=== PATIENT | male | born 1950 | race Caucasian/White ===

== ENCOUNTER 2022-06-09 10:50 | Emergency (ER) | payer MEDICARE ==
[2022-06-09 11:52] LABS: #Eosinphils 0.1 10x3/uL (0.0-0.5); #Monocytes 0.8 10x3/uL (0.0-1.1); #Neutrophils 5.6 10x3/uL (1.5-8.4); %Basophils 0.3 % (0.0-2.0); %Eosinophils 0.9 % (0.0-6.0); %Lymphocytes 29.2 % (18.0-47.0); %Monocytes 8.7 % (0.0-10.0); %Neutrophils 60.5 % (40.0-75.0); Mean Corpuscular HGB CONC 36.1 g/dL (32.0-36.0); Mean Corpuscular Hemoglobin 30.1 pg (27.0-33.0); Mean Corpuscular Volume 83.4 fl (81.2-95.1); Mean Platelet Volume 9.7 fl (7.4-10.4); Platelet Count 119 10x3/uL (150-450); RBC Distribution Width 12.9 % (11.5-14.5); Red Blood Cell (RBC) Count 5.31 10x6/uL (4.32-5.72); White Blood Cell (WBC) Count 9.2 10x3/uL (3.5-10.5)
[2022-06-09 12:08] LABS: ALT (SGPT) 41 U/L (8-55); AST (SGOT) 40 U/L (5-34); Albumin 4.5 g/dL (3.4-4.8); Alkaline Phosphatase 49 U/L (40-110); Anion Gap 13 mmol/L (10-20); BUN (Urea Nitrogen) 18 mg/dL (8.4-25.7); Calc. Creatinine Clearance 0 mL/min (70-130); Calcium 10.1 mg/dL (7.8-10.44); Carbon Dioxide 25 mmol/L (23-31); Chloride 106 mmol/L (98-107); Estimated GFR 94; Globulin 3.8 g/dL (2.4-3.5); Glucose 157 mg/dL (80-115); Protein, Total 8.3 g/dL (5.8-8.1); Sodium 140 mmol/L (136-145)
[2022-06-09 13:07] LABS: Bilirubin Neg (Negative); Blood, Urine 10 (Negative); Clarity Clear (Clear); Glucose, Urine (Dipstick) Normal (Negative); Ketone, Urine Negative (Negative); Leukocyte Negative (Negative); Nitrite Negative (Negative); Protein, Urine (Dipstick) 100 mg/dl (Neg-Trace); Urobilinogen Normal mg/dL (Less than 2)
[2022-06-09 13:39] LABS: Bacteria/HPF Rare-Few HPF (None Seen); RBC/HPF 0-3 HPF (0-3); Squamous Epithelial 0-3 HPF (0-3); WBC/HPF 0-3 HPF (0-3)
== END 2022-06-09 17:18 | disposition home or self-care (01) ==
LOC: CSHERS 10:50
DX: M62.81 Muscle weakness (generalized) (principal); E11.9 Type 2 diabetes mellitus without complications; I10 Essential (primary) hypertension; R11.2 Nausea with vomiting, unspecified; R26.9 Unspecified abnormalities of gait and mobility
CPT/HCPCS: 36416; 70450; 71045; 80053; 81003; 81015; 84484; 85025; 93005; 94760

== ENCOUNTER 2022-06-11 19:12 | Inpatient (IN) | payer MEDICARE ==
[2022-06-11 20:53] LABS: #Eosinphils 0.1 10x3/uL (0.0-0.5); #Monocytes 0.7 10x3/uL (0.0-1.1); #Neutrophils 4.7 10x3/uL (1.5-8.4); %Basophils 0.5 % (0.0-2.0); %Eosinophils 1.6 % (0.0-6.0); %Lymphocytes 29.3 % (18.0-47.0); %Monocytes 8.8 % (0.0-10.0); %Neutrophils 59.3 % (40.0-75.0); Hemoglobin 15.3 g/dL (13.5-17.5); Mean Corpuscular HGB CONC 36.7 g/dL (32.0-36.0); Mean Corpuscular Hemoglobin 30.4 pg (27.0-33.0); Mean Corpuscular Volume 82.7 fl (81.2-95.1); Mean Platelet Volume 9.3 fl (7.4-10.4); Platelet Count 122 10x3/uL (150-450); RBC Distribution Width 12.7 % (11.5-14.5); Red Blood Cell (RBC) Count 5.04 10x6/uL (4.32-5.72)
[2022-06-11 21:04] LABS: ALT (SGPT) 42 U/L (8-55); AST (SGOT) 40 U/L (5-34); Albumin 4.2 g/dL (3.4-4.8); Alkaline Phosphatase 50 U/L (40-110); Anion Gap 16 mmol/L (10-20); BUN (Urea Nitrogen) 17 mg/dL (8.4-25.7); Calc. Creatinine Clearance 0 mL/min (70-130); Carbon Dioxide 20 mmol/L (23-31); Chloride 106 mmol/L (98-107); Estimated GFR 95; Globulin 3.8 g/dL (2.4-3.5); Glucose 125 mg/dL (80-115); Potassium 3.8 mmol/L (3.5-5.1); Sodium 138 mmol/L (136-145)
[2022-06-11 23:08] LABS: Bilirubin Neg (Negative); Blood, Urine 25 (Negative); Clarity Clear (Clear); Glucose, Urine (Dipstick) Normal (Negative); Ketone, Urine 15 mg/dL (Negative); Leukocyte Negative (Negative); Nitrite Negative (Negative); Protein, Urine (Dipstick) 100 mg/dl (Neg-Trace); Urobilinogen Normal mg/dL (Less than 2)
[2022-06-11 23:16] LABS: Bacteria/HPF Rare-Few HPF (None Seen); RBC/HPF 0-3 HPF (0-3); Squamous Epithelial 0-3 HPF (0-3); WBC/HPF 0-3 HPF (0-3)
[2022-06-12] MEDS ORDERED: Calcium Carbonate 500 MG ChewTAB PO PRN (00:31)
[2022-06-12] MEDS ORDERED: Dextrose 50% Abboject 50 ML SYRINGE SLOW IVP PRN (00:31)
[2022-06-12] MEDS ORDERED: Senokot S 8.6-50 MG TAB PO PRN (00:31)
[2022-06-12] MEDS ORDERED: Ondansetron PF 4 MG/2 ML Vial IVP PRN (00:31)
[2022-06-12] MEDS ORDERED: Guaifenesin DM 100-10/5 ML UDCUP PO PRN (00:31)
[2022-06-12] MEDS ORDERED: Dextrose 5% in Water 1,000 ML IV PRN (00:31)
[2022-06-12 00:39] LABS: SARS-CoV-2 NAA Rapid Test Not Detected (NotDetected)
[2022-06-12] MEDS ORDERED: Haloperidol Lactate 5 MG/ML VIAL ONE (01:12)
[2022-06-12] MEDS ORDERED: Lactated Ringer's 500 ML IV SCH (01:15)
[2022-06-12 05:38] LABS: Anion Gap 15 mmol/L (10-20); BUN (Urea Nitrogen) 17 mg/dL (8.4-25.7); Calc. Creatinine Clearance 139 mL/min (70-130); Calcium 9.5 mg/dL (7.8-10.44); Carbon Dioxide 20 mmol/L (23-31); Chloride 109 mmol/L (98-107); Estimated GFR 96; Glucose 132 mg/dL (80-115); Potassium 3.9 mmol/L (3.5-5.1); Sodium 140 mmol/L (136-145)
[2022-06-12] MEDS ORDERED: Boostrix 0.5 ML (Tdap) VIAL (>/=7 yrs of age) ONE (05:38)
[2022-06-12 05:39] LABS: Magnesium 1.9 mg/dL (1.6-2.6)
[2022-06-12 05:50] LABS: Thyroid Stimulating Hormone 2.358 uIU/mL (0.35-4.94)
[2022-06-12] MEDS ORDERED: Lisinopril 10 MG TAB ONE (08:02)
[2022-06-12] MEDS ORDERED: Aspirin Chewable 81 MG TAB ONE (08:02)
[2022-06-12] MEDS ORDERED: Enoxaparin Sodium 40 MG/0.4 ML SYRINGE ONE (08:02)
[2022-06-12] MEDS ORDERED: Amlodipine 5 MG TAB ONE (08:03)
[2022-06-12] MEDS: Enoxaparin Sodium 40 MG/0.4 ML SYRINGE SC SCH (08:42)
[2022-06-12] MEDS: Aspirin 81 mg Enteric Coated Tablet PO SCH (08:42)
[2022-06-12] MEDS ORDERED: Lisinopril 20 MG TAB PO SCH (09:00)
[2022-06-12] MEDS ORDERED: Amlodipine 10 MG TAB PO SCH (09:00)
[2022-06-12 12:42] LABS: Hemoglobin A1c 7.6 % (4.0-6.0)
[2022-06-12] MEDS: Acetaminophen 325 MG TAB PO PRN (20:18)
[2022-06-12] MEDS: HumaLOG 300 UNITS/3 ML VIAL SC PRN (20:26)
[2022-06-12] MEDS ORDERED: Donepezil HCl 5 MG TAB PO SCH (21:00)
[2022-06-12] MEDS ORDERED: Rosuvastatin 10 MG TAB PO SCH (21:00)
[2022-06-12] MEDS ORDERED: Furosemide 20 MG/2 ML VIAL SLOW IVP SCH (21:45)
[2022-06-12] MEDS ORDERED: Furosemide 40 MG/4 ML VIAL SLOW IVP SCH (22:00)
[2022-06-12] MEDS: Ampicillin/Sulbactam 3 GM in Sodium Chloride 0.9% 100 ML IVPB SCH (22:29)
[2022-06-12 23:41] LABS: Bilirubin Neg (Negative); Blood, Urine 25 (Negative); Clarity Clear (Clear); Glucose, Urine (Dipstick) Normal (Negative); Ketone, Urine 50 mg/dL (Negative); Leukocyte Negative (Negative); Nitrite Negative (Negative); Protein, Urine (Dipstick) 100 mg/dl (Neg-Trace); Urobilinogen Normal mg/dL (Less than 2)
[2022-06-12 23:42] LABS: Urine Culture Reflex No No
[2022-06-12 23:48] LABS: Bacteria/HPF Rare-Few HPF (None Seen); RBC/HPF 0-3 HPF (0-3); Squamous Epithelial 0-3 HPF (0-3); WBC/HPF 0-3 HPF (0-3)
[2022-06-12 23:54] LABS: Legionella Urinary Ag Negative (Negative); Strep pneumo Urine Ag NEGATIVE (NEGATIVE)
[2022-06-13] MEDS: Acetaminophen 325 MG TAB PO PRN (02:31)
[2022-06-13] MEDS: Ampicillin/Sulbactam 3 GM in Sodium Chloride 0.9% 100 ML IVPB SCH ×3 (04:07→16:57)
[2022-06-13] MEDS ORDERED: Sterile Water 10 ML ONE (05:28)
[2022-06-13] MEDS ORDERED: Ziprasidone 20 MG VIAL IM SCH ×2 (05:30→15:15)
[2022-06-13] MEDS: HumaLOG 300 UNITS/3 ML VIAL SC PRN (06:13)
[2022-06-13 08:45] LABS: Anion Gap 15 mmol/L (10-20); BUN (Urea Nitrogen) 19 mg/dL (8.4-25.7); Calc. Creatinine Clearance 122 mL/min (70-130); Calcium 9.6 mg/dL (7.8-10.44); Carbon Dioxide 22 mmol/L (23-31); Chloride 107 mmol/L (98-107); Estimated GFR 91; Glucose 187 mg/dL (80-115); Potassium 3.6 mmol/L (3.5-5.1); Sodium 140 mmol/L (136-145)
[2022-06-13 08:46] LABS: Mean Corpuscular HGB CONC 35.6 g/dL (32.0-36.0); Mean Corpuscular Hemoglobin 30.4 pg (27.0-33.0); Mean Corpuscular Volume 85.4 fl (81.2-95.1); Mean Platelet Volume 9.5 fl (7.4-10.4); Platelet Count 88 10x3/uL (150-450); RBC Distribution Width 12.8 % (11.5-14.5); Red Blood Cell (RBC) Count 4.93 10x6/uL (4.32-5.72); White Blood Cell (WBC) Count 11.5 10x3/uL (3.5-10.5)
[2022-06-13 08:47] LABS: MDiff Complete? YES
[2022-06-13 09:16] LABS: Band 13 % (5-11); Lymphocytes 6 % (21-51); Monocytes 8 % (0-10); Neutrophil 73 % (42-75); Platelet Morphology Comment Appears Adequate
[2022-06-13 09:17] LABS: RBC Morphology Normal
[2022-06-13] MEDS: Enoxaparin Sodium 40 MG/0.4 ML SYRINGE SC SCH (11:43)
[2022-06-13] MEDS ORDERED: Aspirin 300 MG Suppository PR SCH (12:30)
[2022-06-13] MEDS ORDERED: Acetaminophen 650 MG Suppository PR SCH (13:45)
[2022-06-13] MEDS ORDERED: Acetaminophen 325 MG Suppository PR PRN (14:01)
[2022-06-13] MEDS ORDERED: Iopamidol 370 76% 100 ML VIAL ONE (14:37)
[2022-06-13] MEDS ORDERED: Lorazepam 2 MG/ML VIAL SLOW IVP PRN (14:52)
[2022-06-13] MEDS ORDERED: Ampicillin/Sulbactam 3 GM VIAL ONE (15:57)
[2022-06-13] MEDS ORDERED: Piperacillin/Tazobactam 3.375 GM in Sodium Chloride 0.9% 100 ML IVPB SCH (17:00)
[2022-06-13] MEDS: Aspirin 81 mg Enteric Coated Tablet PO SCH (21:03)
[2022-06-13] MEDS: Piperacillin/Tazobactam 3.375 GM in Sodium Chloride 0.9% 100 ML IVPB SCH (21:50)
[2022-06-13] MEDS: Rosuvastatin 20 MG TAB PO SCH (21:54)
[2022-06-14] MEDS: Piperacillin/Tazobactam 3.375 GM in Sodium Chloride 0.9% 100 ML IVPB SCH ×3 (04:41→20:43)
[2022-06-14 05:01] LABS: Hemoglobin 14.7 g/dL (13.5-17.5); Mean Corpuscular Hemoglobin 30.2 pg (27.0-33.0); Mean Corpuscular Volume 86.4 fl (81.2-95.1); Mean Platelet Volume 9.7 fl (7.4-10.4); Platelet Count 87 10x3/uL (150-450); Red Blood Cell (RBC) Count 4.86 10x6/uL (4.32-5.72); White Blood Cell (WBC) Count 9.2 10x3/uL (3.5-10.5)
[2022-06-14 05:12] LABS: Anion Gap 14 mmol/L (10-20); BUN (Urea Nitrogen) 24 mg/dL (8.4-25.7); Calc. Creatinine Clearance 122 mL/min (70-130); Calcium 9.9 mg/dL (7.8-10.44); Carbon Dioxide 24 mmol/L (23-31); Cardiac Risk 2.5 (Less than 4.5); Chloride 110 mmol/L (98-107); Cholesterol 106 mg/dl (< 200 Desired); Estimated GFR 91; Glucose 164 mg/dL (80-115); HDL Cholesterol 43 mg/dL (>60 Neg Risk); LDL Cholesterol, Calculated 44 mg/dL; Potassium 3.9 mmol/L (3.5-5.1); Sodium 144 mmol/L (136-145); Triglycerides 96 mg/dL (Less than 150)
[2022-06-14] MEDS: Enoxaparin Sodium 40 MG/0.4 ML SYRINGE SC SCH (10:14)
[2022-06-14] MEDS: Amlodipine 10 MG TAB PO SCH (10:40)
[2022-06-14] MEDS: Lisinopril 20 MG TAB PO SCH (10:41)
[2022-06-14] MEDS: Donepezil HCl 5 MG TAB PO SCH (10:41)
[2022-06-14] MEDS: Aspirin 300 MG Suppository PR SCH (10:41)
[2022-06-14] MEDS: Enalaprilat Dihydrate 1.25 MG/ML VIAL SLOW IVP SCH ×2 (12:50→18:50)
[2022-06-14] MEDS: Rosuvastatin 20 MG TAB PO SCH (20:43)
[2022-06-15] MEDS: Enalaprilat Dihydrate 1.25 MG/ML VIAL SLOW IVP SCH ×5 (01:14→23:53)
[2022-06-15] MEDS: Piperacillin/Tazobactam 3.375 GM in Sodium Chloride 0.9% 100 ML IVPB SCH ×3 (04:32→20:15)
[2022-06-15] MEDS: Enoxaparin Sodium 40 MG/0.4 ML SYRINGE SC SCH (08:50)
[2022-06-15] MEDS: Amlodipine 10 MG TAB PO SCH (10:38)
[2022-06-15] MEDS: Aspirin 300 MG Suppository PR SCH (10:38)
[2022-06-15] MEDS: Donepezil HCl 5 MG TAB PO SCH (10:39)
[2022-06-15] MEDS ORDERED: Enalaprilat Dihydrate 2.5 MG in Dextrose 5% in Water 50 ML IVPB SCH (12:00)
[2022-06-15] MEDS: Rosuvastatin 20 MG TAB PO SCH (20:59)
[2022-06-16] MEDS: Piperacillin/Tazobactam 3.375 GM in Sodium Chloride 0.9% 100 ML IVPB SCH ×3 (05:37→20:15)
[2022-06-16] MEDS: Enalaprilat Dihydrate 1.25 MG/ML VIAL SLOW IVP SCH ×3 (06:21→19:35)
[2022-06-16 06:26] LABS: Hemoglobin 14.8 g/dL (13.5-17.5); Mean Corpuscular HGB CONC 34.9 g/dL (32.0-36.0); Mean Corpuscular Hemoglobin 30.2 pg (27.0-33.0); Mean Corpuscular Volume 86.5 fl (81.2-95.1); Mean Platelet Volume 9.7 fl (7.4-10.4); Platelet Count 109 10x3/uL (150-450); RBC Distribution Width 12.7 % (11.5-14.5); White Blood Cell (WBC) Count 6.2 10x3/uL (3.5-10.5)
[2022-06-16 06:40] LABS: Anion Gap 13 mmol/L (10-20); BUN (Urea Nitrogen) 21 mg/dL (8.4-25.7); Calc. Creatinine Clearance 139 mL/min (70-130); Calcium 9.9 mg/dL (7.8-10.44); Carbon Dioxide 28 mmol/L (23-31); Chloride 111 mmol/L (98-107); Estimated GFR 96; Glucose 144 mg/dL (80-115); Magnesium 2.1 mg/dL (1.6-2.6); Phosphorus 2.9 mg/dL (2.3-4.7); Potassium 3.8 mmol/L (3.5-5.1); Sodium 148 mmol/L (136-145)
[2022-06-16] MEDS: Amlodipine 10 MG TAB PO SCH (09:48)
[2022-06-16] MEDS: Donepezil HCl 5 MG TAB PO SCH (09:49)
[2022-06-16] MEDS: Aspirin 300 MG Suppository PR SCH (09:49)
[2022-06-16] MEDS: Enoxaparin Sodium 40 MG/0.4 ML SYRINGE SC SCH (10:43)
[2022-06-16] MEDS: Amino Acids 4.25 %/Dextrose 5% 1,000 ML IV SCH (14:21)
[2022-06-16] MEDS: Rosuvastatin 20 MG TAB PO SCH (20:15)
[2022-06-17] MEDS: Enalaprilat Dihydrate 1.25 MG/ML VIAL SLOW IVP SCH ×4 (01:42→16:52)
[2022-06-17] MEDS: Piperacillin/Tazobactam 3.375 GM in Sodium Chloride 0.9% 100 ML IVPB SCH ×3 (04:14→21:04)
[2022-06-17 05:28] LABS: Anion Gap 16 mmol/L (10-20); BUN (Urea Nitrogen) 21 mg/dL (8.4-25.7); Calc. Creatinine Clearance 141 mL/min (70-130); Calcium 9.9 mg/dL (7.8-10.44); Carbon Dioxide 27 mmol/L (23-31); Chloride 109 mmol/L (98-107); Estimated GFR 96; Glucose 164 mg/dL (80-115); Magnesium 2.1 mg/dL (1.6-2.6); Phosphorus 2.9 mg/dL (2.3-4.7); Potassium 3.8 mmol/L (3.5-5.1); Sodium 148 mmol/L (136-145)
[2022-06-17] MEDS ORDERED: hydrALAZINE 20 MG/ML VIAL SLOW IVP PRN (07:45)
[2022-06-17] MEDS: Donepezil HCl 5 MG TAB PO SCH (08:48)
[2022-06-17] MEDS: Amlodipine 10 MG TAB PO SCH (08:48)
[2022-06-17] MEDS: Aspirin 300 MG Suppository PR SCH (08:48)
[2022-06-17] MEDS: Enoxaparin Sodium 40 MG/0.4 ML SYRINGE SC SCH (10:21)
[2022-06-17] MEDS: Amino Acids 4.25 %/Dextrose 5% 1,000 ML IV SCH (14:46)
[2022-06-17] MEDS: Rosuvastatin 20 MG TAB PO SCH (22:14)
[2022-06-18] MEDS: Enalaprilat Dihydrate 1.25 MG/ML VIAL SLOW IVP SCH ×5 (00:46→23:56)
[2022-06-18] MEDS: Piperacillin/Tazobactam 3.375 GM in Sodium Chloride 0.9% 100 ML IVPB SCH ×3 (05:00→21:13)
[2022-06-18 05:19] LABS: Hemoglobin 15.5 g/dL (13.5-17.5); Mean Corpuscular HGB CONC 35.4 g/dL (32.0-36.0); Mean Corpuscular Hemoglobin 30.6 pg (27.0-33.0); Mean Corpuscular Volume 86.6 fl (81.2-95.1); Mean Platelet Volume 9.7 fl (7.4-10.4); Platelet Count 101 10x3/uL (150-450); RBC Distribution Width 12.2 % (11.5-14.5); Red Blood Cell (RBC) Count 5.06 10x6/uL (4.32-5.72); White Blood Cell (WBC) Count 6.8 10x3/uL (3.5-10.5)
[2022-06-18 05:34] LABS: Anion Gap 14 mmol/L (10-20); BUN (Urea Nitrogen) 19 mg/dL (8.4-25.7); Calc. Creatinine Clearance 147 mL/min (70-130); Calcium 9.6 mg/dL (7.8-10.44); Carbon Dioxide 28 mmol/L (23-31); Chloride 108 mmol/L (98-107); Estimated GFR 97; Glucose 164 mg/dL (80-115); Potassium 3.6 mmol/L (3.5-5.1); Sodium 146 mmol/L (136-145)
[2022-06-18] MEDS: Donepezil HCl 5 MG TAB PO SCH (10:27)
[2022-06-18] MEDS: Amlodipine 10 MG TAB PO SCH (10:27)
[2022-06-18] MEDS: Enoxaparin Sodium 40 MG/0.4 ML SYRINGE SC SCH (10:27)
[2022-06-18] MEDS: Aspirin 300 MG Suppository PR SCH (10:27)
[2022-06-18] MEDS: Amino Acids 4.25 %/Dextrose 5% 1,000 ML IV SCH (14:18)
[2022-06-18 15:18] VITALS: BMI 33.7
[2022-06-18] MEDS: Rosuvastatin 20 MG TAB PO SCH (21:15)
[2022-06-19] MEDS: Piperacillin/Tazobactam 3.375 GM in Sodium Chloride 0.9% 100 ML IVPB SCH ×3 (04:47→21:45)
[2022-06-19] MEDS: Enalaprilat Dihydrate 1.25 MG/ML VIAL SLOW IVP SCH ×3 (05:25→20:36)
[2022-06-19 05:45] LABS: Anion Gap 11 mmol/L (10-20); BUN (Urea Nitrogen) 19 mg/dL (8.4-25.7); Calc. Creatinine Clearance 147 mL/min (70-130); Calcium 9.4 mg/dL (7.8-10.44); Carbon Dioxide 29 mmol/L (23-31); Chloride 108 mmol/L (98-107); Estimated GFR 97; Glucose 170 mg/dL (80-115); Potassium 3.4 mmol/L (3.5-5.1); Sodium 145 mmol/L (136-145)
[2022-06-19 05:58] LABS: #Eosinphils 0.1 10x3/uL (0.0-0.5); #Monocytes 0.6 10x3/uL (0.0-1.1); #Neutrophils 3.6 10x3/uL (1.5-8.4); %Basophils 0.5 % (0.0-2.0); %Eosinophils 2.4 % (0.0-6.0); %Lymphocytes 26.6 % (18.0-47.0); %Monocytes 9.6 % (0.0-10.0); %Neutrophils 60.2 % (40.0-75.0); Hemoglobin 14.6 g/dL (13.5-17.5); Mean Corpuscular Hemoglobin 30.5 pg (27.0-33.0); Mean Corpuscular Volume 84.8 fl (81.2-95.1); Mean Platelet Volume 10.6 fl (7.4-10.4); Platelet Count 107 10x3/uL (150-450); RBC Distribution Width 12.4 % (11.5-14.5); Red Blood Cell (RBC) Count 4.79 10x6/uL (4.32-5.72)
[2022-06-19] MEDS: Amlodipine 10 MG TAB PO SCH (07:33)
[2022-06-19] MEDS: Donepezil HCl 5 MG TAB PO SCH (07:36)
[2022-06-19] MEDS: Lisinopril 20 MG TAB PO SCH (07:36)
[2022-06-19] MEDS: Enoxaparin Sodium 40 MG/0.4 ML SYRINGE SC SCH (10:37)
[2022-06-19] MEDS: Aspirin 300 MG Suppository PR SCH (10:37)
[2022-06-19] MEDS: Amino Acids 4.25 %/Dextrose 5% 1,000 ML IV SCH (13:49)
[2022-06-19] MEDS: Rosuvastatin 20 MG TAB PO SCH (22:13)
[2022-06-20] MEDS: Enalaprilat Dihydrate 1.25 MG/ML VIAL SLOW IVP SCH ×4 (00:06→18:45)
[2022-06-20] MEDS: Piperacillin/Tazobactam 3.375 GM in Sodium Chloride 0.9% 100 ML IVPB SCH ×2 (04:09→15:39)
[2022-06-20] MEDS: Enoxaparin Sodium 40 MG/0.4 ML SYRINGE SC SCH (10:20)
[2022-06-20] MEDS: Amlodipine 10 MG TAB PO SCH (10:20)
[2022-06-20] MEDS: Lisinopril 20 MG TAB PO SCH (10:20)
[2022-06-20] MEDS: Aspirin 300 MG Suppository PR SCH (10:20)
[2022-06-20] MEDS: Donepezil HCl 5 MG TAB PO SCH (10:20)
[2022-06-20] MEDS: Amino Acids 4.25 %/Dextrose 5% 1,000 ML IV SCH (15:23)
[2022-06-20 21:02] VITALS: BP 127/69; TEMP 98.2
== END 2022-06-20 18:34 | disposition hospice, home (50) | DRG 64 ==
LOC: CSHERS 19:12 → UNDOADMIN 06-12 00:03 → INTOOBSV 06-12 00:03 → OBSVTOIN 06-12 00:03 → CSHERHOLD 06-12 00:03 → CSHTELE 06-12 13:19 → CSHERHOLD 06-13 14:19
PROVIDERS: ADMIT Student in an Organized Health Care Education/Training Program; ATTEND Hospitalist
PROC: 3E0336Z Introduction of Nutritional Substance into Peripheral Vein, Percutaneous Approach (ICD-10-PCS; principal; 2022-06-16)
DX: I63.89 Other cerebral infarction (principal); J18.9 Pneumonia, unspecified organism; J69.0 Pneumonitis due to inhalation of food and vomit; J96.01 Acute respiratory failure with hypoxia; E87.0 Hyperosmolality and hypernatremia; G81.94 Hemiplegia, unspecified affecting left nondominant side; Z66 Do not resuscitate; Z51.5 Encounter for palliative care; I10 Essential (primary) hypertension; Z20.822 Contact with and (suspected) exposure to COVID-19; F01.50 Vascular dementia, unspecified severity, without behavioral disturbance, psychotic disturbance, mood disturbance, and anxiety; R26.0 Ataxic gait; R13.12 Dysphagia, oropharyngeal phase; G93.89 Other specified disorders of brain; E11.65 Type 2 diabetes mellitus with hyperglycemia; E78.2 Mixed hyperlipidemia; R29.810 Facial weakness; R47.1 Dysarthria and anarthria; D69.6 Thrombocytopenia, unspecified; Z86.73 Personal history of transient ischemic attack (TIA), and cerebral infarction without residual deficits; Z87.820 Personal history of traumatic brain injury; Z82.49 Family history of ischemic heart disease and other diseases of the circulatory system; Z83.3 Family history of diabetes mellitus; Z87.891 Personal history of nicotine dependence
CPT/HCPCS: 12011; 36415; 36416; 70450; 70551; 71045; 71275; 74230; 80048; 80053; 80061; 81001; 81003; 81015; 82607; 83036; 83605; 83735; 83880; 84100; 84145; 84443; 84484; 85025; 85027; 87040; 87086; 87449; 87899; 90471; 90715; 93005; 93306; 93880; 94667; 94668; 94760; 96372; 96374; 96375; 96376; G0378; J0295; J1630; J1650; J1815; J1940; J2543; J3486; J3490; J7120; Q9967; U0002; U0003; U0005